=== PATIENT | female | born 1945 | race Caucasian/White ===

== ENCOUNTER 2016-12-16 08:56 | Emergency (ER) | payer MEDICARE, BC, MEDICAID ==
--- NOTE | 2016-12-16 10:14 | CT ---
CT HEAD WITHOUT CONTRAST: Date: 12/16/16 Multiple axial tomograms obtained through head without IV enhancement. HISTORY: Patient fell with injury to head. FINDINGS: Ventricles have normal size and position. There are mild chronic ischemic changes seen in the perive ntricular white matter and basal ganglia regions. There is no evidence of acute hemorrhage, mass, or infarct. There is a scalp hematoma over the right parietal bone. No evidence of skull fracture identified. There is mucosal edema in the right sphenoid sinus. Paranasal sinuses otherwise appear aerated as vi sualized on this study. IMPRESSION: 1. No evidence of acute intracranial injury. 2. Scalp hematoma over the right parietal bone. 3. Mucosal edema in the right sphenoid sinus. POS: [facility]
--- NOTE | 2016-12-16 10:16 | RAD ---
AP PELVIS: Date: 12/16/16 HISTORY: Injury. Patient fell at home. FINDINGS: There are three screws transfixing the left femoral neck. Bony pelvis appears intact. No evidence of acute fracture identified. IMPRESSION: No evidence of acute fracture. POS: [facility]
== END 2016-12-16 10:30 | disposition home or self-care (01) ==
LOC: ERS 08:56
DX: S00.03XA Contusion of scalp, initial encounter (principal); S70.02XA Contusion of left hip, initial encounter; M54.5 Low back pain; E03.9 Hypothyroidism, unspecified; W18.30XA Fall on same level, unspecified, initial encounter
CPT/HCPCS: 70450; 72170

== ENCOUNTER 2017-02-07 04:04 | Emergency (ER) | payer MEDICARE, BC, MEDICAID ==
[2017-02-07] MEDS ORDERED: Fentanyl 100 MCG/2 ML VIAL ONE (04:32)
[2017-02-07] MEDS ORDERED: Lorazepam 2 MG/ML VIAL ONE (04:32)
[2017-02-07 05:26] LABS: #Lymphocytes 1.3 thou/uL (1.20-3.40); #Monocytes 0.4 thou/uL (0.11-0.59); #Neutrophils 6.2 thou/uL (1.40-6.50); %Basophils 0.1 % (0.0-1.0); %Eosinophils 0.3 % (0.0-10.0); %Lymphocytes 16.5 % (21.0-51.0); %Monocytes 5.2 % (0.0-10.0); Hematocrit 42.3 % (36.0-47.0); Mean Platelet Volume 6.7 fL (7.4-10.4); Red Blood Cell (RBC) Count 4.47 mill/uL (4.20-5.40); White Blood Cell (WBC) Count 7.9 thou/uL (4.8-10.8)
[2017-02-07 05:32] LABS: Prothrombin Time 12.6 SEC (12.0-14.7)
[2017-02-07 05:33] LABS: PTT 26.3 SEC (22.9-36.1)
[2017-02-07 05:39] LABS: ALT (SGPT) 12 U/L (8-55); AST (SGOT) 20 U/L (5-34); Alkaline Phosphatase 63 U/L (40-150); Anion Gap 16 mmol/L (10-20); BUN (Urea Nitrogen) 6 mg/dL (9.8-20.1); Bilirubin, Total 0.8 mg/dL (0.2-1.2); CK (CPK) 64 U/L (29-168); Calc. Creatinine Clearance 0 mL/min (70-130); Carbon Dioxide 23 mmol/L (23-31); Chloride 96 mmol/L (98-107); Estimated GFR-MDRD 82; Globulin 3.3 g/dL (2.4-3.5); Lipase 42 U/L (8-78)
[2017-02-07 05:41] LABS: Troponin I Less than 0.010 ng/mL (< 0.028)
--- NOTE | 2017-02-07 07:42 | RAD ---
PORTABLE CHEST 1 VIEW: DATE: 02/07/17. TIME: 4:32 a.m. HISTORY: Chest pain, palpitations, back pain. FINDINGS: The heart size is borderline. The lungs are expanded without focal areas of consolidation, pneumotho rax, or pleural effusions. IMPRESSION: No radiographic evidence of acute cardiopulmonary process. POS: [facility]
--- NOTE | 2017-02-07 07:48 | CT ---
PRELIMINARY REPORT/[facility]/EMERGENCY AFTER HOURS PROCEDURE: EXAM: CT Angiography Chest With Intravenous Contrast CLINICAL HISTORY: 71 years old, female; Pain; Other: Back pain; Abdominal pain; Patient HX: F 71 presents to ed with pa lpations and back pain. Pt states that pain began last night around 1900 and became more intense thro ughout the night. Pt states that the back pain lead to the palpations. No HX of aortic problems. Took prednisone last night for pain but had no relief. TECHNIQUE: Axial computed tomographic angiography images of the chest with intravenous contrast using pulmonary embolism protocol. Coronal and sagittal reformatted images were created and reviewed. CONTRAST: 96 mL of ISO 370 administered intravenously. COMPARISON: No relevant prior studies available. FINDINGS: Pulmonary arteries: There is no evidence of peripheral filling defects within the pulmonary arterial circulation to suggest pulmonary embolism. Aorta: There is no evidence of aortic dissection, leak, rupture, or other complications. The aorta is normal. Lungs: There is subpleural atelectasis of the dependent portions of the lungs. No mass. Pleural space: Normal. No significant effusion. No pneumothorax. Heart: Normal. No cardiomegaly. No significant pericardial effusion. No evidence of RV dysfunction. Bones/joints: No acute fracture. No dislocation. Soft tissues: Normal. Lymph nodes: Normal. No enlarged lymph nodes. IMPRESSION: 1. There is no evidence of aortic dissection, leak, rupture, or other complications. 2. There is no CT evidence of acute pulmonary embolism. EXAM: CT Angiography Abdomen With Intravenous Contrast EXAM DATE/TIME: Exam ordered 02/07/2017 5:46 AM CLINICAL HISTORY: 71 years old, female; Pain; Other: Back pain; Abdominal pain; Patient HX: F 71 presents to ed with pa lpations and back pain. Pt states that pain began last night around 1900 and became more intense thro ughout the night. Pt states that the back pain lead to the palpations. No HX of aortic problems. Took prednisone last night for pain but had no relief. TECHNIQUE: Axial computed tomographic angiography images of the abdomen with intravenous contrast. Coronal and sagittal reformatted images were created and reviewed. CONTRAST: 96 mL of ISO 370 administered intravenously. COMPARISON: No relevant prior studies available. FINDINGS: Lower thorax: A small hiatal hernia is present. Aorta: There is no evidence of aortic aneurysm, dissection, leak, rupture, or other complications. The aorta demonstrates mild atherosclerotic calcification. 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 SMA patent. LANRE is patent. Renal arteries: No acute findings. No occlusion or significant stenosis. Liver: There are no focal liver lesions present. Gallbladder and bile ducts: There has been a cholecystectomy. No ductal dilation. Pancreas: The pancreas is normal. No ductal dilation. Spleen: The spleen is normal. Adrenals: The adrenal glands are normal. Kidneys and ureters: The right kidney is normal. There is a simple cyst in the left kidney. Nohydrone phrosis. Stomach and bowel: The duodenum is unremarkable. The visualized bowel is unremarkable. No obstruction . No mucosal thickening. Intraperitoneal space: Normal. No significant fluid collection. No free air. Bones/joints: No acute fracture. No dislocation. Soft tissues: Normal. No mass. Lymph nodes: Normal. No enlarged lymph nodes. IMPRESSION: 1. There is no evidence of aortic aneurysm, dissection, leak, rupture, or other complications. 2. 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 Thank you for allowing us to participate in the care of your patient. Dictated and Authenticated by: Ronak Malik MD 02/07/2017 6:27 AM Central Time ([place] & [place]) FINAL REPORT CTA CHEST WITH IV CONTRAST AND 3D POSTPROCESSING CTA ABDOMEN WITH IV CONTRAST AND 3D POSTPROCESSING: Date: 02/07/17 IMPRESSION: I agree with the preliminary report given by Dr. Ronak Malik of [facility]. POS: [facility]
[2017-02-07] MEDS ORDERED: ISOVUE-370 76%-LOCM 1 ML ONE (12:14)
== END 2017-02-07 06:43 | disposition home or self-care (01) ==
LOC: ERS 04:04
DX: M54.6 Pain in thoracic spine (principal); E03.9 Hypothyroidism, unspecified; Z79.899 Other long term (current) drug therapy
CPT/HCPCS: 71010; 71275; 80053; 82550; 82553; 83690; 83880; 84484; 85025; 85610; 85730; 93005; 96361; 96374; 96375; J2060; J3010

== ENCOUNTER 2017-04-25 07:27 | Outpatient (CLI) | payer MEDICARE, BC, MEDICAID ==
--- NOTE | 2017-04-25 08:39 | RAD ---
THORACIC SPINE 3 VIEWS: HISTORY: Back pain. FINDINGS: Thoracic vertebrae maintain normal height and alignment. No compression deformity. No lytic or mak tic process. Very mild degenerative spurring. Disk spaces are preserved, although there is some deg enerative disk change noted. IMPRESSION: Unremarkable thoracic spine. POS: [facility]
== END 2017-04-25 07:28 | disposition home or self-care (01) ==
LOC: SCSRAD 07:27
PROVIDERS: ATTEND Internal Medicine Rheumatology
DX: M81.8 Other osteoporosis without current pathological fracture (principal)
CPT/HCPCS: 72070

== ENCOUNTER 2017-04-27 09:43 | Inpatient (IN) | payer MEDICARE, BC, MEDICAID ==
[2017-04-27 10:29] LABS: #Lymphocytes 0.9 thou/uL (1.20-3.40); #Monocytes 1.1 thou/uL (0.11-0.59); #Neutrophils 14.7 thou/uL (1.40-6.50); %Basophils 0.3 % (0.0-1.0); %Eosinophils 0.2 % (0.0-10.0); %Lymphocytes 5.6 % (21.0-51.0); %Monocytes 6.3 % (0.0-10.0); %Neutrophils 87.7 % (42.0-75.0); Hemoglobin 13.1 g/dL (12.0-16.0); Mean Corpuscular HGB CONC 32.3 g/dL (32.0-36.0); Mean Corpuscular Hemoglobin 30.2 pg (27.0-31.0); Mean Corpuscular Volume 93.2 fl (81.0-99.0); Platelet Count 432 thou/uL (130-400); RBC Distribution Width 11.5 % (11.5-14.5); Red Blood Cell (RBC) Count 4.34 mill/uL (4.20-5.40); White Blood Cell (WBC) Count 16.8 thou/uL (4.8-10.8)
[2017-04-27] MEDS ORDERED: Acetaminophen 500 MG TAB ONE (10:39)
[2017-04-27 10:53] LABS: ALT (SGPT) 10 U/L (8-55); AST (SGOT) 17 U/L (5-34); Albumin 4.1 g/dL (3.4-4.8); Alkaline Phosphatase 73 U/L (40-150); Anion Gap 13 mmol/L (10-20); BUN (Urea Nitrogen) 7 mg/dL (9.8-20.1); Bilirubin, Total 0.9 mg/dL (0.2-1.2); CK (CPK) 65 U/L (29-168); Calc. Creatinine Clearance 0 mL/min (70-130); Calcium 9.3 mg/dL (7.8-10.44); Carbon Dioxide 21 mmol/L (23-31); Chloride 97 mmol/L (98-107); Estimated GFR-MDRD 86; Globulin 3.1 g/dL (2.4-3.5); Glucose 100 mg/dL (80-115); Potassium 4.4 mmol/L (3.5-5.1); Protein, Total 7.2 g/dL (6.0-8.3); Sodium 127 mmol/L (136-145)
[2017-04-27 10:55] LABS: CKMB 0.4 ng/mL (0-6.6); Troponin I Less than 0.010 ng/mL (< 0.028)
[2017-04-27] MEDS ORDERED: Ondansetron ODT 4 MG TAB PO PRN (11:20)
[2017-04-27] MEDS ORDERED: Ondansetron HCl/PF 4 MG/2 ML Vial IVP PRN (11:20)
[2017-04-27] MEDS ORDERED: Albuterol Sulfate 2.5 mg/3 ml Neb NEB PRN (11:23)
--- NOTE | 2017-04-27 11:25 | RAD ---
PORTABLE CHEST: Date: 04/27/17 PROVIDED CLINICAL HISTORY: Cough. FINDINGS: Comparison with 02/07/17. Cardiac and mediastinal silhouette is unchanged in appearance. Patchy parenchymal opacity is present at the left lung base, which may reflect pneumonia. Lungs appear otherwise clear. No evidence for ple ural fluid or pneumothorax. IMPRESSION: Patchy left basilar air space disease, correlate for pneumonia. Follow-up is recommended. POS: [facility]
--- NOTE | 2017-04-27 11:58 | CT ---
CT OF BRAIN PERFORMED WITHOUT CONTRAST ENHANCEMENT: Date: 04/27/17 HISTORY: Headache, cough, and congestion. FINDINGS: There is some generalized ventricular and sulcal prominence. There is some decreased attenuation to t he periventricular white matter consistent with chronic white matter change. There are no signs of in tracerebral hemorrhage or extra-axial fluid collections. The mastoid air cells are clear. There is et hmoid air cell mucosal disease. IMPRESSION: No acute intracranial abnormalities. POS: [facility]
[2017-04-27 12:14] LABS: Bilirubin Negative (Negative); Blood, Urine Negative (Negative); Clarity CLEAR (Clear); Glucose, Urine (Dipstick) Negative (Negative); Leukocyte Negative (Negative); Nitrite Negative (Negative); Protein, Urine (Dipstick) Negative (Neg-Trace); Specific Gravity, Urine 1.009 (1.002-1.036)
--- NOTE | 2017-04-27 13:26 | HP ---
PRIMARY CARE PHYSICIAN: Naren Malagon M.D. PRESENTING COMPLAINT: Cough. HISTORY OF PRESENT ILLNESS: Ms. Shaunna Jules is a 72-year-old female with a past medical history of gout, hypothyroidism, anemia of chronic disorder who presented to the emergency room with complaints of cough productive of yellowish sputum, nasal congestion, fever, and generalized malaise. She reports flu-like symptoms and the above named symptoms for the past 3-4 days. She went to see her primary care physician who felt symptoms are viral and was managed conservatively, but they persisted. She also had a left-sided headache located on her yazidi associated with some lacrimation, but no photophobia. No history of migraine headaches. Due to her persistent symptoms, she presented to the emergency room where labs revealed leukocytosis and a chest x-ray showed left basilar pneumonia. She was also found to be tachycardic and febrile with a temperature of 102.4 degree Fahrenheit. Other vital signs were within normal limits. PAST MEDICAL HISTORY: Gout, hypothyroidism, anemia of chronic disease. PAST SURGICAL HISTORY: Appendectomy, tonsillectomy and gastrectomy. FAMILY HISTORY: Reviewed and noncontributory. SOCIAL HISTORY: She does not smoke cigarettes, drink alcohol or use illicit drugs. ALLERGIES: ADHESIVES, ASPIRIN, ATROPINE SULFATE, DIPHENOXYLATE, SULFA DRUGS, LATEX, CODEINE. REVIEW OF SYSTEMS: Constitutional: Chills, fever. HEENT: P.r.n. headaches, rhinorrhea. Cardiovascular: Negative. Respiratory: Per HPI. Gastrointestinal: Negative. Genitourinary: Negative. Musculoskeletal: Negative. Skin: Negative. Neurologic: Headaches. Hematologic/Lymphatic: Negative. Allergy/Immunology: Negative. PHYSICAL EXAMINATION: VITAL SIGNS: Stable at the time of examination. GENERAL: Not in acute distress, lethargic, lying comfortably in bed. HEENT: Normocephalic, atraumatic. Not pale, anicteric. Moist mucous membranes. RESPIRATORY: Has rales in bilateral lung jauregui, but worse in the left lower lung jauregui. Otherwise, breath sounds were vesicular. CARDIOVASCULAR: S1, S2 only. No murmurs, rubs or gallops. Regular rate and rhythm. NEUROLOGIC: Alert and well oriented. No focal deficits. SKIN: Warm, dry, well-perfused. No rashes or lesions. MUSCULOSKELETAL: Moves all extremities spontaneously. No skeletal abnormalities. PSYCHIATRIC: Normal mood and affect. HOME MEDICATIONS: Reviewed and charted. LABORATORY DATA: As stated in HPI. IMAGING: Chest x-ray as stated in HPI. CT brain, no acute abnormalities. ASSESSMENT AND PLAN: 1. Sepsis secondary to left lower lobe pneumonia. She has been started on IV hydration. Blood cultures have been taken as well as sputum. IV levofloxacin has been instituted. We will monitor vital signs closely and follow up on culture results. 2. Pneumonia: as above. 3. Hypothyroidism. We will resume levothyroxine and obtain a TSH. 4. Gout, not in acute flare. We will continue home medications. 5. Headaches, Tylenol p.r.n. We will monitor vital signs and do neuro checks. CODE STATUS: FULL CODE. PROPHYLAXIS: Subcutaneous heparin. MTDD
[2017-04-27] MEDS ORDERED: Heparin 5,000 UNITS/ML VIAL SC SCH (15:00)
[2017-04-27] MEDS: Acetaminophen 325 MG TAB PO PRN ×2 (17:04→23:08)
[2017-04-27] MEDS: Sodium Chloride 0.9% 1,000 ML IV SCH ×2 (17:16→23:51)
[2017-04-27] MEDS ORDERED: Cepastat Lozenges 1 LOZ PO PRN (19:08)
[2017-04-27] MEDS ORDERED: Chloraseptic Spray 180 ml Bottle PO PRN (19:08)
[2017-04-27 19:55] VITALS: BMI 24.0
[2017-04-27] MEDS: Famotidine 20 MG TAB PO SCH (20:14)
[2017-04-27] MEDS: Docusate 100 MG CAP PO SCH (20:14)
[2017-04-27] MEDS: guaiFENesin ER 600 MG TAB PO SCH (20:14)
[2017-04-27] MEDS ORDERED: Cyclobenzaprine 10 MG TAB PO SCH (23:30)
[2017-04-28 05:10] LABS: #Lymphocytes 1.3 thou/uL (1.20-3.40); #Monocytes 1.3 thou/uL (0.11-0.59); #Neutrophils 16.1 thou/uL (1.40-6.50); %Basophils 0.1 % (0.0-1.0); %Eosinophils 0.1 % (0.0-10.0); %Lymphocytes 6.7 % (21.0-51.0); %Monocytes 6.7 % (0.0-10.0); %Neutrophils 86.4 % (42.0-75.0); Hemoglobin 11.3 g/dL (12.0-16.0); Mean Corpuscular Hemoglobin 31.1 pg (27.0-31.0); Mean Corpuscular Volume 94.2 fl (81.0-99.0); Mean Platelet Volume 6.4 fL (7.4-10.4); Platelet Count 397 thou/uL (130-400); RBC Distribution Width 11.4 % (11.5-14.5); Red Blood Cell (RBC) Count 3.61 mill/uL (4.20-5.40); White Blood Cell (WBC) Count 18.7 thou/uL (4.8-10.8)
[2017-04-28 05:12] LABS: Anion Gap 11 mmol/L (10-20); BUN (Urea Nitrogen) 5 mg/dL (9.8-20.1); Calc. Creatinine Clearance 83 mL/min (70-130); Calcium 8.5 mg/dL (7.8-10.44); Carbon Dioxide 21 mmol/L (23-31); Chloride 104 mmol/L (98-107); Estimated GFR-MDRD Greater than 90; Glucose 99 mg/dL (80-115); Potassium 3.8 mmol/L (3.5-5.1); Sodium 132 mmol/L (136-145)
[2017-04-28] MEDS: guaiFENesin ER 600 MG TAB PO SCH ×2 (09:40→20:06)
[2017-04-28] MEDS: Famotidine 20 MG TAB PO SCH ×2 (09:40→20:06)
[2017-04-28] MEDS: Docusate 100 MG CAP PO SCH ×2 (09:40→20:06)
[2017-04-28] MEDS: Cyclobenzaprine 10 MG TAB PO PRN ×2 (10:55→20:06)
--- NOTE | 2017-04-28 11:46 | PDOC.PN ---
- Subjective Encounter Start Date: 04/28/17 Encounter Start Time: 10:20 doing better. with productive cough - Objective Vital Signs & Weight: Vital Signs (12 hours) Temp Pulse Resp BP Pulse Ox 04/28/17 07:09 99.4 F 79 18 125/79 94 L 04/28/17 04:00 98.6 F 80 20 130/80 93 L 04/28/17 00:34 99.2 F 88 20 130/83 95 Weight Weight 139 lb 11.2 oz I&O: 04/27/17 04/28/17 04/29/17 05:59 06:59 06:59 Intake Total Balance Result Diagrams: 04/28/17 04:27 04/28/17 04:27 Phys Exam - Physical Examination Constitutional: NAD HEENT: PERRLA, moist MMs, sclera anicteric Neck: no nodes, no JVD, supple Respiratory: no wheezing, clear to auscultation bilateral Cardiovascular: RRR, no significant murmur Gastrointestinal: soft, non-tender, no distention Musculoskeletal: no edema, pulses present Neurological: non-focal, moves all 4 limbs Psychiatric: normal affect, A&O x 3 Dx/Plan (1) Sepsis Code(s): A41.9 - SEPSIS, UNSPECIFIED ORGANISM Status: Acute (2) Left lower lobe pneumonia Code(s): J18.1 - LOBAR PNEUMONIA, UNSPECIFIED ORGANISM Status: Acute - Plan cont current plan of care, plan discussed w/ family, continue antibiotics, respiratory therapy * . posssibly swtich to PO tmrw if cotninues to improve. monitor CBC in am as WBC trending up
[2017-04-28] MEDS ORDERED: Colchicine 0.6 MG TAB PO PRN (11:50)
[2017-04-28] MEDS ORDERED: OLOPATADINE HCL EA EYE PRN (11:50)
[2017-04-28] MEDS ORDERED: Cyanocobalamin 1000 MCG/ML VIAL IM SCH (12:00)
[2017-04-28] MEDS ORDERED: Donnatal Elixir 16.2 MG/5 ML UDCUP PO PRN (13:00)
[2017-04-28] MEDS: Sodium Chloride 0.9% 1,000 ML IV SCH (14:00)
[2017-04-28] MEDS: Mometasone/Formoterol 120 PUFF INHALER INH SCH (18:22)
[2017-04-28] MEDS ORDERED: Ketotifen Fumarate 0.025% Ophth Soln 5 ml Bottle EA EYE PRN (21:00)
[2017-04-29 05:34] LABS: Anion Gap 17 mmol/L (10-20); BUN (Urea Nitrogen) 6 mg/dL (9.8-20.1); Calc. Creatinine Clearance 83 mL/min (70-130); Calcium 8.7 mg/dL (7.8-10.44); Carbon Dioxide 15 mmol/L (23-31); Chloride 103 mmol/L (98-107); Estimated GFR-MDRD Greater than 90; Glucose 67 mg/dL (80-115); Potassium 4.5 mmol/L (3.5-5.1); Sodium 130 mmol/L (136-145)
[2017-04-29 05:35] LABS: Eosinophils 2 % (0-10); Hemoglobin 10.8 g/dL (12.0-16.0); Lymphocytes 13 % (21-51); MDiff Complete? YES; Mean Corpuscular HGB CONC 31.8 g/dL (32.0-36.0); Mean Corpuscular Hemoglobin 30.2 pg (27.0-31.0); Mean Platelet Volume 6.6 fL (7.4-10.4); Monocytes 6 % (0-10); Neutrophil 78 % (42-75); PLT Morphology Comment Appears Adequate; Platelet Count 371 thou/uL (130-400); RBC Distribution Width 11.5 % (11.5-14.5); Red Blood Cell (RBC) Count 3.57 mill/uL (4.20-5.40); White Blood Cell (WBC) Count 12.8 thou/uL (4.8-10.8)
[2017-04-29] MEDS: Mometasone/Formoterol 120 PUFF INHALER INH SCH (06:23)
[2017-04-29] MEDS: Famotidine 20 MG TAB PO SCH (08:40)
[2017-04-29] MEDS: guaiFENesin ER 600 MG TAB PO SCH (08:40)
[2017-04-29] MEDS: Docusate 100 MG CAP PO SCH (08:41)
[2017-04-29] MEDS ORDERED: Diazepam 5 MG TAB PO PRN (09:00)
[2017-04-29] MEDS ORDERED: Levothyroxine Sodium 50 MCG TAB PO SCH (09:00)
[2017-04-29] MEDS ORDERED: Nebivolol HCl 2.5 MG TAB PO SCH (09:00)
[2017-04-29 10:58] VITALS: BP 128/81; TEMP 97.5
--- NOTE | 2017-04-29 14:17 | DIS ---
DISCHARGE DIAGNOSES: 1. Sepsis secondary to left lower lobe pneumonia. 2. Left lower lobe pneumonia. HOSPITAL COURSE: While the patient was in hospital, the patient was started on IV antibiotics. Cult ures were drawn which were negative. The patient was afebrile with no leukocytosis. The patient had improved with the antibiotics that was started. The patient was satting well on room air. Due to the patient was significantly well, I was comfortable discharging the patient home. She was a lready taking IV Levaquin while in hospital so we have transitioned to oral so she can continue to ta ke it for another 5 more days. The patient was to follow with her primary care physician in 1 week. All questions answered prior to discharge. DISPOSITION: To home. DISCHARGE CONDITION: Much improved from when she initially came in. DISCHARGE ACTIVITY: As tolerated. DISCHARGE MEDICATIONS: Please see reconciled medication list. DISCHARGE DIET: Regular diet. FOLLOWUP APPOINTMENTS: With primary care physician in 1 week. Discharge planning was greater than 30 minutes.
--- NOTE | 2017-05-04 13:12 | EKG ---
Test Reason : Blood Pressure : / mmHG Vent. Rate : 102 BPM Atrial Rate : 102 BPM P-R Int : 106 ms QRS Dur : 070 ms QT Int : 312 ms P-R-T Axes : 039 048 015 degrees QTc Int : 406 ms Sinus tachycardia with short WA Nonspecific ST and T wave abnormality Abnormal ECG Confirmed by AKHIL QUINN ([id number]), manager editorial EULALIA ALMAGUER ([id number]) on 05/04/2017 1:11:52 PM Referred By: Confirmed By:AKHIL QUINN
== END 2017-04-29 11:34 | disposition home or self-care (01) | DRG 871 ==
LOC: ERS 09:43 → T4-A 12:01
PROVIDERS: ADMIT Internal Medicine; ATTEND Internal Medicine
DX: A41.9 Sepsis, unspecified organism (principal); J18.9 Pneumonia, unspecified organism; D63.8 Anemia in other chronic diseases classified elsewhere; E11.9 Type 2 diabetes mellitus without complications; M10.9 Gout, unspecified; E03.9 Hypothyroidism, unspecified
CPT/HCPCS: 36415; 70450; 71045; 72070; 80048; 80053; 81003; 82550; 82553; 83605; 83880; 84484; 85025; 87040; 87086; 87804; 93005; 94640; 96361; 96365; 96366; 99213; A4216; G0463; J1644; J1956; J3420

== ENCOUNTER 2017-05-21 07:25 | Emergency (ER) | payer MEDICARE, BC, MEDICAID ==
[2017-05-21] MEDS ORDERED: Ketorolac Tromethamine 30 MG/ML VIAL ONE (07:52)
== END 2017-05-21 08:10 | disposition home or self-care (01) ==
LOC: SCSER 07:25
DX: M62.830 Muscle spasm of back (principal); E11.9 Type 2 diabetes mellitus without complications; E03.9 Hypothyroidism, unspecified; W01.0XXA Fall on same level from slipping, tripping and stumbling without subsequent striking against object, initial encounter
CPT/HCPCS: 20552; 96372; J1885

== ENCOUNTER 2017-05-23 08:33 | Emergency (ER) | payer MEDICARE, BC, MEDICAID ==
[2017-05-23] MEDS ORDERED: Acetaminophen 500 MG TAB ONE (09:24)
[2017-05-23] MEDS ORDERED: Diazepam 5 MG TAB ONE (09:25)
[2017-05-23 09:52] LABS: #Eosinphils 0.4 thou/uL (0.0-0.7); #Lymphocytes 0.9 thou/uL (1.20-3.40); #Monocytes 0.4 thou/uL (0.11-0.59); #Neutrophils 3.5 thou/uL (1.40-6.50); %Basophils 0.4 % (0.0-1.0); %Monocytes 7.8 % (0.0-10.0); %Neutrophils 66.8 % (42.0-75.0); Hemoglobin 12.9 g/dL (12.0-16.0); Mean Corpuscular HGB CONC 32.8 g/dL (32.0-36.0); Mean Corpuscular Hemoglobin 30.7 pg (27.0-31.0); Mean Corpuscular Volume 93.7 fl (81.0-99.0); Mean Platelet Volume 6.7 fL (7.4-10.4); Platelet Count 368 thou/uL (130-400); Red Blood Cell (RBC) Count 4.21 mill/uL (4.20-5.40); White Blood Cell (WBC) Count 5.2 thou/uL (4.8-10.8)
[2017-05-23 10:02] LABS: Bilirubin Negative (Negative); Blood, Urine Negative (Negative); Clarity CLEAR (Clear); Glucose, Urine (Dipstick) Negative (Negative); Leukocyte Small (Negative); Nitrite Negative (Negative); Protein, Urine (Dipstick) Negative (Neg-Trace); Specific Gravity, Urine 1.014 (1.002-1.036); Urobilinogen 0.2 mg/dL (0.2-1.0)
[2017-05-23 10:03] LABS: Bacteria/HPF None Seen HPF (None Seen); Hyaline Casts/LPF 0-3 HYALINE CAST LPF (0-3 Hyaline); Pathc Cast-AUWi Flag 0.58 (0-2.49)
[2017-05-23 10:13] LABS: ALT (SGPT) 10 U/L (8-55); AST (SGOT) 18 U/L (5-34); Albumin 4.1 g/dL (3.4-4.8); Alkaline Phosphatase 62 U/L (40-150); Anion Gap 12 mmol/L (10-20); BUN (Urea Nitrogen) 5 mg/dL (9.8-20.1); Bilirubin, Total 0.5 mg/dL (0.2-1.2); Calc. Creatinine Clearance 0 mL/min (70-130); Calcium 9.4 mg/dL (7.8-10.44); Carbon Dioxide 25 mmol/L (23-31); Chloride 100 mmol/L (98-107); Estimated GFR-MDRD 83; Globulin 2.8 g/dL (2.4-3.5); Glucose 96 mg/dL (80-115); Potassium 4.7 mmol/L (3.5-5.1); Protein, Total 6.9 g/dL (6.0-8.3); Sodium 132 mmol/L (136-145)
--- NOTE | 2017-05-23 11:03 | RAD ---
3 VIEWS LUMBAR SPINE: Date 05/23/17 INDICATION: Low back pain for 1 week. COMPARISON: CT lumbar spine dated 01/28/15. FINDINGS: There are five lumbar-type vertebrae. Cholecystectomy clips are seen within the right upper quadrant. There is mild diffuse osteopenia. Multilevel mild disc degenerative disease is stable. Vertebral bod y heights are preserved. Mild facet osteoarthritic change is similar appearing. Vascular calcificatio n of aortic arch is stable. IMPRESSION: 1. Stable disc degenerative disease of the lumbar spine. 2. Diffuse osteopenia. POS: [facility]
== END 2017-05-23 11:33 | disposition home or self-care (01) ==
LOC: ERS 08:33
DX: N39.0 Urinary tract infection, site not specified (principal); M54.5 Low back pain; E11.9 Type 2 diabetes mellitus without complications; E03.9 Hypothyroidism, unspecified; Z79.52 Long term (current) use of systemic steroids; Z79.899 Other long term (current) drug therapy
CPT/HCPCS: 36415; 72100; 80053; 81003; 81015; 85025; 85652; 86140

== ENCOUNTER 2017-05-31 11:56 | Emergency (ER) | payer MEDICARE, BC, MEDICAID ==
--- NOTE | 2017-05-31 13:05 | CT ---
CT LUMBAR SPINE: HISTORY: A 72-year-old female with a history of fall, back pain. FINDINGS: Axial images are obtained with coronal and sagittal reconstructions. Comparison is made to a previou s CT from 01/28/15. CT images demonstrate an area of subtle height loss at the L2 vertebral level. There is an area of s lightly sclerotic linear density in the axial plane seen on the mid portion of the L2 vertebral body. This is compatible with approximately 10-5% L2 compression fracture. No significant evidence of re tropulsion seen. No evidence of spinal stenosis seen. There is a broad-based disk bulge and facet hypertrophy and ligamentum flavum hypertrophy resulting i n mild stenosis at L4-5. L5-S1: There is mild facet hypertrophy seen. IMPRESSION: A 10-15% height loss and acute compression fracture involving the L2 vertebra. This was not present on the previous CT from 2014 and appears to be acute. POS: [facility]
== END 2017-05-31 14:25 | disposition home or self-care (01) ==
LOC: ERS 11:56
DX: S32.020A Wedge compression fracture of second lumbar vertebra, initial encounter for closed fracture (principal); M51.26 Other intervertebral disc displacement, lumbar region; M51.27 Other intervertebral disc displacement, lumbosacral region; E11.9 Type 2 diabetes mellitus without complications; E03.9 Hypothyroidism, unspecified; Z79.52 Long term (current) use of systemic steroids; Z79.899 Other long term (current) drug therapy; W07.XXXA Fall from chair, initial encounter
CPT/HCPCS: 72131

== ENCOUNTER 2017-07-09 07:53 | Outpatient (CLI) | payer MEDICARE, BC, MEDICAID | END 2017-07-09 07:54 | disposition home or self-care (01) | LOC: BICULT 07:53 | PROVIDERS: ATTEND Internal Medicine Gastroenterology | DX: K74.60 Unspecified cirrhosis of liver (principal); B18.2 Chronic viral hepatitis C; K21.9 Gastro-esophageal reflux disease without esophagitis; Z90.49 Acquired absence of other specified parts of digestive tract | CPT/HCPCS: 76705 ==

== ENCOUNTER 2017-07-23 13:10 | Outpatient (CLI) | payer MEDICARE, BC, MEDICAID ==
--- NOTE | 2017-07-23 14:26 | RAD ---
LUMBAR SPINE TWO VIEWS: 07/23/2017 HISTORY: Multiple falls. Back pain. COMPARISON: 05/23/2017 FINDINGS: There are postoperative clips overlying the T11 and T12 regions. Clips in the right upper quadrant s uggest a prior cholecystectomy. There is atherosclerotic calcification of the abdominal aorta. There is a superior endplate/anterior wedge compression fracture at L2, as seen on a CT of the lumbar spine performed on 05/31/2017. On today's examination, the degree of anterior vertebral body height loss involving the L2 fracture is estimated at approximately 20%. This was estimated at the 10% to 15% range on the prior CT examination. No new fracture is seen. No retropulsion. No anterolisthesis or retrolisthesis. Multilevel mild lo wer lumbar spine facet hypertrophy. IMPRESSION: Anterior wedge compression fracture of the L2 vertebral body with at least 20% loss of vertebral body height anteriorly. The degree of vertebral body height loss has worsened slightly since the 018 CT exam. No new fracture identified. POS: [facility]
== END 2017-07-23 13:11 | disposition home or self-care (01) ==
LOC: TBSIIMAG 13:10
PROVIDERS: ATTEND Neurological Surgery
DX: S32.020A Wedge compression fracture of second lumbar vertebra, initial encounter for closed fracture (principal)
CPT/HCPCS: 72100

== ENCOUNTER 2017-08-02 08:43 | Outpatient (CLI) | payer MEDICARE, BC, MEDICAID | END 2017-08-02 08:44 | disposition home or self-care (01) | LOC: BICMAMMO 08:43 | PROVIDERS: ATTEND Internal Medicine Rheumatology | DX: M81.8 Other osteoporosis without current pathological fracture (principal) | CPT/HCPCS: 77080 ==

== ENCOUNTER 2017-10-01 12:17 | Outpatient (CLI) | payer MEDICARE, BC, MEDICAID | END 2017-10-01 12:18 | disposition home or self-care (01) | LOC: BICRAD 12:17 | PROVIDERS: ATTEND Internal Medicine Rheumatology | DX: M79.671 Pain in right foot (principal) ==

== ENCOUNTER 2017-12-12 10:41 | Emergency (ER) | payer MEDICARE, BC ==
[2017-12-12] MEDS ORDERED: Famotidine/PF 20 mg/2ml Vial ONE (10:50)
[2017-12-12] MEDS ORDERED: EPINEPHrine 1 MG/ML AMP ONE ×2 (10:50→12:53)
[2017-12-12] MEDS ORDERED: diphenhydrAMINE 25 MG CAP ONE ×2 (11:03→12:45)
[2017-12-12 11:16] LABS: #Basophils 0.1 thou/uL (0.0-0.2); #Eosinphils 0.3 thou/uL (0.0-0.7); #Lymphocytes 1.7 thou/uL (1.20-3.40); #Neutrophils 11.8 thou/uL (1.40-6.50); %Basophils 0.7 % (0.0-1.0); %Eosinophils 1.8 % (0.0-10.0); %Lymphocytes 11.3 % (21.0-51.0); %Monocytes 6.8 % (0.0-10.0); %Neutrophils 79.5 % (42.0-75.0); Hemoglobin 13.4 g/dL (12.0-16.0); Mean Corpuscular HGB CONC 33.1 g/dL (32.0-36.0); Mean Corpuscular Hemoglobin 30.5 pg (27.0-31.0); Mean Corpuscular Volume 92.1 fL (78.0-98.0); Mean Platelet Volume 6.6 fL (7.4-10.4); Platelet Count 412 thou/uL (130-400); Red Blood Cell (RBC) Count 4.39 mill/uL (4.20-5.40); White Blood Cell (WBC) Count 14.8 thou/uL (4.8-10.8)
[2017-12-12 11:33] LABS: ALT (SGPT) 12 U/L (8-55); AST (SGOT) 19 U/L (5-34); Albumin 4.6 g/dL (3.4-4.8); Alkaline Phosphatase 46 U/L (40-150); Anion Gap 13 mmol/L (10-20); BUN (Urea Nitrogen) 8 mg/dL (9.8-20.1); Bilirubin, Total 0.5 mg/dL (0.2-1.2); Calc. Creatinine Clearance 0 mL/min (70-130); Calcium 9.8 mg/dL (7.8-10.44); Carbon Dioxide 24 mmol/L (23-31); Chloride 96 mmol/L (98-107); Estimated GFR-MDRD 78; Globulin 2.8 g/dL (2.4-3.5); Glucose 89 mg/dL (80-115); Potassium 3.8 mmol/L (3.5-5.1); Protein, Total 7.4 g/dL (6.0-8.3); Sodium 129 mmol/L (136-145)
--- NOTE | 2017-12-12 14:44 | RAD ---
CHEST ONE VIEW: History: Chest pain. Dyspnea. Comparison: 04-27-17 FINDINGS: Cardiac silhouette is magnified by projection. Pulmonary vasculature is unremarkable. Mediastinum is midline. Lungs remain hyperinflated. No lobar consolidation or evidence of pneumothorax. Post-operati ve changes of the GE junction. gold prospector leads overlie the chest. IMPRESSION: No active cardiopulmonary abnormalities are demonstrated. Chronic type findings are stable. POS: [facility]
[2017-12-12 15:23] LABS: Bilirubin Negative (Negative); Blood, Urine Negative (Negative); Clarity CLEAR (Clear); Glucose, Urine (Dipstick) Negative (Negative); Leukocyte Moderate (Negative); Nitrite Negative (Negative); Protein, Urine (Dipstick) Negative (Neg-Trace); Specific Gravity, Urine 1.005 (1.002-1.036); Urobilinogen 0.2 mg/dL (0.2-1.0); pH, Urine 7.5 (5.0-9.0)
[2017-12-12 15:25] LABS: Bacteria/HPF None Seen HPF (None Seen); Hyaline Casts/LPF 0-3 HYALINE CAST LPF (0-3 Hyaline); RBC/HPF 0-3 HPF (0-3); WBC/HPF 21-50 HPF (0-3)
== END 2017-12-12 16:04 | disposition home or self-care (01) ==
LOC: ERS 10:41
DX: T78.2XXA Anaphylactic shock, unspecified, initial encounter (principal); N39.0 Urinary tract infection, site not specified; E11.649 Type 2 diabetes mellitus with hypoglycemia without coma; E03.9 Hypothyroidism, unspecified; Z79.899 Other long term (current) drug therapy
CPT/HCPCS: 71045; 80053; 81003; 81015; 85025; 93005; 96372; 96374; J0171; S0028

== ENCOUNTER 2018-03-07 13:14 | Emergency (ER) | payer MEDICARE, BC, MEDICAID ==
[2018-03-07 13:46] LABS: Bilirubin Small (Negative); Blood, Urine Trace (Negative); Clarity Cloudy (Clear); Glucose, Urine (Dipstick) 250 mg/dL (Negative); Leukocyte Large (Negative); Nitrite Positive (Negative); Protein, Urine (Dipstick) 30 mg/dL (Neg-Trace); pH, Urine 6.5 (5.0-9.0)
[2018-03-07 13:52] LABS: Bacteria/HPF 2+ HPF (None Seen)
[2018-03-07 13:53] LABS: Oval Fat Bodies/HPF Rare HPF (None Seen); Renal Epithelial 0-3 HPF (0-3)
== END 2018-03-07 14:15 | disposition home or self-care (01) ==
LOC: SCSER 13:14
DX: N30.01 Acute cystitis with hematuria (principal); D50.0 Iron deficiency anemia secondary to blood loss (chronic); E11.649 Type 2 diabetes mellitus with hypoglycemia without coma; E03.9 Hypothyroidism, unspecified; Z79.899 Other long term (current) drug therapy
CPT/HCPCS: 81003; 81015; 87077; 87086; 87186; 99283

== ENCOUNTER 2018-04-09 12:13 | Emergency (ER) | payer MEDICARE, BC, MEDICAID ==
[2018-04-09 12:53] LABS: #Basophils 0.1 thou/uL (0.0-0.2); #Eosinphils 0.6 thou/uL (0.0-0.7); #Lymphocytes 1.3 thou/uL (1.20-3.40); #Monocytes 0.7 thou/uL (0.11-0.59); #Neutrophils 5.1 thou/uL (1.40-6.50); %Eosinophils 7.6 % (0.0-10.0); %Lymphocytes 16.3 % (21.0-51.0); %Neutrophils 66.2 % (42.0-75.0); Hemoglobin 11.7 g/dL (12.0-16.0); Mean Corpuscular HGB CONC 33.4 g/dL (32.0-36.0); Mean Corpuscular Hemoglobin 31.8 pg (27.0-31.0); Mean Corpuscular Volume 95.4 fL (78.0-98.0); Mean Platelet Volume 5.6 fL (7.4-10.4); Platelet Count 351 thou/uL (130-400); RBC Distribution Width 12.4 % (11.5-14.5); Red Blood Cell (RBC) Count 3.66 mill/uL (4.20-5.40); White Blood Cell (WBC) Count 7.7 thou/uL (4.8-10.8)
[2018-04-09 13:00] LABS: PTT 25.1 SEC (22.9-36.1); Prothrombin Time 13.2 SEC (12.0-14.7)
[2018-04-09 13:10] LABS: ALT (SGPT) 16 U/L (8-55); AST (SGOT) 20 U/L (5-34); Albumin 4.1 g/dL (3.4-4.8); Alkaline Phosphatase 48 U/L (40-150); Anion Gap 13 mmol/L (10-20); BUN (Urea Nitrogen) 9 mg/dL (9.8-20.1); Bilirubin, Total 0.3 mg/dL (0.2-1.2); Calc. Creatinine Clearance 0 mL/min (70-130); Calcium 9.3 mg/dL (7.8-10.44); Carbon Dioxide 23 mmol/L (23-31); Chloride 97 mmol/L (98-107); Estimated GFR-MDRD 87; Globulin 2.4 g/dL (2.4-3.5); Glucose 102 mg/dL (80-115); Potassium 4.1 mmol/L (3.5-5.1); Protein, Total 6.5 g/dL (6.0-8.3); Sodium 129 mmol/L (136-145)
== END 2018-04-09 13:29 | disposition home or self-care (01) ==
LOC: SCSER 12:13
DX: L42 Pityriasis rosea (principal); I10 Essential (primary) hypertension; E87.1 Hypo-osmolality and hyponatremia; R23.3 Spontaneous ecchymoses; D50.9 Iron deficiency anemia, unspecified; M10.9 Gout, unspecified; E11.9 Type 2 diabetes mellitus without complications; E11.649 Type 2 diabetes mellitus with hypoglycemia without coma; E03.9 Hypothyroidism, unspecified; Z79.899 Other long term (current) drug therapy
CPT/HCPCS: 36415; 80053; 85025; 85610; 85730; 99283

== ENCOUNTER 2018-09-03 20:45 | Inpatient (IN) | payer MEDICARE, BC, MEDICAID ==
--- NOTE | 2018-09-03 21:38 | RAD ---
EXAM: Portable chest PROVIDED CLINICAL HISTORY: Altered mental status COMPARISON: 12/12/2017 FINDINGS: Cardiac and mediastinal silhouette is within normal limits. No focal consolidation, pleural fluid or pneumothorax evident. IMPRESSION: No evidence for an acute cardiopulmonary process.
[2018-09-03 21:40] LABS: #Eosinphils 0.9 thou/uL (0.0-0.7); #Lymphocytes 1.4 thou/uL (1.20-3.40); #Monocytes 1.2 thou/uL (0.11-0.59); #Neutrophils 8.6 thou/uL (1.40-6.50); %Basophils 0.2 % (0.0-1.0); %Eosinophils 7.5 % (0.0-10.0); %Lymphocytes 11.5 % (21.0-51.0); %Monocytes 9.9 % (0.0-10.0); %Neutrophils 70.8 % (42.0-75.0); Hemoglobin 11.3 g/dL (12.0-16.0); Mean Corpuscular HGB CONC 31.9 g/dL (32.0-36.0); Mean Corpuscular Hemoglobin 28.4 pg (27.0-31.0); Mean Platelet Volume 6.5 fL (7.4-10.4); Platelet Count 522 thou/uL (130-400); RBC Distribution Width 12.3 % (11.5-14.5); Red Blood Cell (RBC) Count 3.99 mill/uL (4.20-5.40); White Blood Cell (WBC) Count 12.2 thou/uL (4.8-10.8)
[2018-09-03 22:02] LABS: ALT (SGPT) 11 U/L (8-55); AST (SGOT) 19 U/L (5-34); Acetaminophen Less than 6.0 mcg/mL (10.0-30.0); Albumin 4.1 g/dL (3.4-4.8); Alcohol Less than 10 mg/dL (Less than 10); Alkaline Phosphatase 64 U/L (40-150); Anion Gap 11 mmol/L (10-20); BUN (Urea Nitrogen) 11 mg/dL (9.8-20.1); Bilirubin, Total 0.3 mg/dL (0.2-1.2); Calc. Creatinine Clearance 0 mL/min (70-130); Calcium 9.8 mg/dL (7.8-10.44); Carbon Dioxide 26 mmol/L (23-31); Chloride 97 mmol/L (98-107); Estimated GFR-MDRD 90; Globulin 2.8 g/dL (2.4-3.5); Glucose 99 mg/dL (83-110); Potassium 3.7 mmol/L (3.5-5.1); Protein, Total 6.9 g/dL (6.0-8.3); Salicylate Less than 8.0 mg/dL (15.0-30.0); Sodium 130 mmol/L (136-145)
--- NOTE | 2018-09-03 22:02 | CT ---
Exam: CT brain PROVIDED CLINICAL HISTORY: Altered mental status COMPARISON: 04/27/2017 FINDINGS: The ventricular system is normal in size and morphology. No evidence for intracranial hemorrhage or mass effect. The extracranial soft tissues and osseous structures demonstrate no evidence for an acute abnormality. Chronic microvascular ischemic changes involving the occipital white matter noted. IMPRESSION: No evidence for intracranial hemorrhage or mass effect.
[2018-09-03] MEDS ORDERED: diphenhydrAMINE 50 MG/ML VIAL ONE (22:25)
[2018-09-03] MEDS ORDERED: Aspirin Chewable 81 MG TAB ONE (22:33)
[2018-09-03 23:17] LABS: Bacteria/HPF None Seen HPF (None Seen); Bilirubin Negative (Negative); Blood, Urine Negative (Negative); Clarity Clear (Clear); Glucose, Urine (Dipstick) 50 mg/dL (Negative); Leukocyte 75 Leu/uL (Negative); Mucous/LPF 1+ LPF (<2+); Nitrite Negative (Negative); Protein, Urine (Dipstick) Negative (Neg-Trace); Urobilinogen Normal mg/dL (Less than 2)
[2018-09-04 00:09] VITALS: BMI 21.2
[2018-09-04] MEDS ORDERED: Bisacodyl 5 MG TAB PO PRN (10:56)
[2018-09-04] MEDS ORDERED: Meropenem 1 GM in Sodium Chloride 0.9% 100 ML IVPB SCH (11:00)
[2018-09-04] MEDS ORDERED: CRISABOROLE TD PRN (11:04)
[2018-09-04] MEDS ORDERED: RABEPRAZOLE SODIUM 20 MG PO PRN (11:04)
[2018-09-04] MEDS ORDERED: Colchicine 0.6 MG TAB PO PRN (11:04)
[2018-09-04] MEDS ORDERED: [UNRECOGNIZED DRUG - REMARK] PO PRN (11:04)
--- NOTE | 2018-09-04 12:12 | MRI ---
BRAIN MRI NONCONTRAST: INDICATION: Hyponatremia, encephalopathy. FINDINGS: There is mild global atrophy. No restricted diffusion. No evidence of mass effect or midline shift. Mild prominence of the ventricular system is present related to compensatory dilatation. Moderate chronic microvascular ischemic disease of the cerebral white matter is present. There is also pontin e gliosis. Minute susceptibility focus of the posterior right parietal lobe is seen. There is bilate ral mastoid fluid, right greater than left. Skull base flow voids are preserved. [place] intraocular lenses are absent. There is a focal T2 hyperintense, T1 hypointense subcutaneous mass of the left b uccal soft tissues which may relate to an inclusion cyst/sebaceous cyst. Correlate with physical exa m. IMPRESSION: 1. No acute territorial infarction or mass effect. 2. Moderate chronic microvascular ischemic disease. 3. Bilateral mastoid effusions. POS: [facility]
[2018-09-04] MEDS ORDERED: CRISABOROLE TOP PRN (12:25)
[2018-09-04] MEDS ORDERED: MEROPENEM 1 GM/50 ML 1 GM in Premix Bag 1 BAG IVPB SCH (14:00)
[2018-09-04] MEDS ORDERED: Cyanocobalamin 1000 MCG/ML VIAL IM SCH (14:00)
[2018-09-04] MEDS: diphenhydrAMINE 25 MG CAP PO PRN (14:44)
[2018-09-04] MEDS ORDERED: Melatonin 3 MG TAB PO PRN (16:04)
[2018-09-04] MEDS ORDERED: Nebivolol HCl 5 MG TAB PO SCH (16:30)
[2018-09-04 16:32] LABS: Amphetamine Not Detected (NotDetected); Barbiturates Screen Detected (NotDetected); Benzodiazepine Screen Not Detected (NotDetected); Cocaine Metabolite Screen Not Detected (NotDetected); Medtox Control Line Valid? VALID (VALID); Medtox Reader # READER 4; Methadone Not Detected (NotDetected); Methamphetamine Not Detected (NotDetected); Opiate Screen Not Detected (NotDetected); Oxycodone Screen Not Detected (NotDetected); Phencyclidine (PCP) Not Detected (NotDetected); THC/Cannabinoid Screen Not Detected (NotDetected); Tricyclic Screen Not Detected (NotDetected)
--- NOTE | 2018-09-04 16:54 | HP ---
PRIMARY CARE PROVIDER: Naren Malagon MD CHIEF COMPLAINT: Confusion. HISTORY OF PRESENT ILLNESS: Ms. Jules is a pleasant 73-year-old lady, who was seen at [facility] on September 04, 2018. Three days ago, she had headache over the crown of her head. The following day, she had a brief episode of confusion. Yesterday, she had longer episode of confusion. She was hallucinating. She reports that she saw a puppy when she does not have a puppy. She lives with her nephew. Her son called her at home and was told that she wanted to go home. The patient is able to provide most of the history at this time. Collateral history was obtained from her son, daughter, and grandson by the bedside, review of medical records and discussion with emergency room physician. She reports that she has dysuria. She reports feeling warm yesterday. She has no other complaints. REVIEW OF SYSTEMS: All other systems were reviewed and found to be negative. PAST MEDICAL HISTORY: Macular degeneration, iron deficiency anemia, gout, diabetes mellitus, hypothyroidism, hepatitis C, fibromyalgia, and lupus. PAST SURGICAL HISTORY: Appendectomy, cholecystectomy, left hip surgery, tonsillectomy, gastrectomy, bilateral cataract surgery, and sinus surgery. PSYCHIATRIC HISTORY: None. FAMILY HISTORY: Congestive heart failure in her mother and esophageal surgery in her father. CODE STATUS: I discussed her code status. She is full code. SOCIAL HISTORY: The patient denies tobacco use, alcohol use, or recreational drug use. ALLERGIES: ADHESIVE, ASPIRIN, ATROPINE, CODEINE, DIPHENOXYLATE, LATEX, MORPHINE, PENICILLIN, AND SULFA. CURRENT MEDICATIONS: 1. every 4 hours as needed. 2. Colchicine 0.6 mg 2 times a day as needed. 3. Eucrisa ointment 2 times a day as needed. 4. Vitamin B12 of 1000 mcg every month. 5. Synthroid 75 mcg daily. 6. Bystolic 5 mg daily. 7. Rabeprazole 20 mg daily as needed. PHYSICAL EXAMINATION: GENERAL: On examination, Ms. Jules is awake and alert, not in acute distress. VITAL SIGNS: Blood pressure is 176/85, pulse 80, respiratory rate 16, oxygen saturation 99% on room air, and she is afebrile. EYES: No scleral icterus. No conjunctival pallor. ENT: Moist mucosal membranes. No oropharyngeal erythema or exudates. NECK: Supple, nontender. Trachea is midline. RESPIRATORY: Accessory muscles of breathing are not active. Chest wall movements are symmetric bilaterally. Lungs are clear to auscultation without wheeze, rhonchi, or crepitations. CARDIOVASCULAR: S1 and S2 are heard, regular. Peripheral pulses palpable. No carotid bruit. No pericardial rub. ABDOMEN: Soft, nontender. Bowel sounds heard. No hepatomegaly. No splenomegaly. NEUROLOGIC: Cranial nerves II through XII intact. Deep tendon reflexes 2+. No focal motor or sensory deficits. Plantars downgoing bilaterally. MUSCULOSKELETAL: Power is 5/5 in all 4 extremities. SKIN: No rashes or subcutaneous nodules. LYMPHATIC: No cervical lymphadenopathy. PSYCHIATRIC: Normal mood. Normal affect. The patient is oriented to person, place, and time. DIAGNOSTIC DATA: Ms. Julse' labs and investigations were reviewed. I reviewed her electrocardiogram, which shows normal sinus rhythm, no ST changes to suggest an acute coronary syndrome. I also reviewed her chest x-ray, which does not show any pulmonary infiltrates. Noncontrast CT scan of the brain was unremarkable. She has leukocytosis with 12,200 white cells, of which 70.8% are neutrophils, normocytic anemia with hemoglobin 11.3, elevated platelet count of 522,000, decreased sodium of 130, otherwise unremarkable comprehensive metabolic profile, normal troponin-I and normal TSH. Urinalysis is positive for leukocyte esterase, rbc, and wbc. ASSESSMENT AND PLAN: Ms. Jules is a pleasant 73-year-old lady, who was seen at [facility] on September 04, 2018. Her problem list includes: 1. Acute metabolic encephalopathy: Ms. Jules is presenting with acute metabolic encephalopathy, etiology is unclear at this time. Differential diagnosis includes infectious causes, for example, urinary tract infection as well as other etiologies such as steroid use. She will be admitted to the hospital for further management. Neurology Service will be consulted for opinion and help with management. We will check MRI of the brain. 2. Urinary tract infection: Urinalysis is suggestive of urinary tract infection. We will trial meropenem empirically until urine cultures are back. The patient reports that her allergy to penicillin is in the form of rash and itching. 3. Hypothyroidism: We will continue Synthroid. TSH was normal. 4. Hypertension: Her blood pressure has been elevated. We will continue Bystolic and add amlodipine. 5. Gout: We will continue colchicine. Many thanks for allowing me to participate in your patient's care. Please feel free to contact me with any questions or concerns. LEVEL OF RISK: High. LEVEL OF COMPLEXITY: High. Job ID: [id number]
[2018-09-04] MEDS ORDERED: Amlodipine 5 MG TAB PO SCH (17:00)
--- NOTE | 2018-09-04 19:41 | CON ---
DATE OF CONSULTATION: CHIEF COMPLAINT: Encephalopathy. HISTORY OF PRESENT ILLNESS: The patient remembers that she did have some confusion and her grandkids brought her to the hospital. She gets tired and she feels dizzy, it is not severe. She has headache on top of the head. No nausea or vomiting. There is no history of any weakness described. She was hallucinating per ER and other medical records here, and the patient had some dysuria and yellowish-colored urine. PAST MEDICAL HISTORY: Positive for; 1. Macular degeneration. 2. Iron-deficiency anemia. 3. Gout. 4. Diabetes. 5. Hypothyroidism. 6. Hepatitis C. 7. Fibromyalgia. 8. Lupus. PAST SURGICAL HISTORY: 1. Appendectomy. 2. Cholecystectomy. 3. Left hip surgery. 4. Tonsillectomy. 5. Gastrectomy. 6. Bilateral cataract surgery. 7. Sinus surgery. FAMILY HISTORY: Positive for coronary artery disease, hypertension in her mother, who passed at 82. Father at 69 following gastrointestinal issues, and per chart, he had esophageal surgery. She has 1 brother with no significant medical history there. SOCIAL HISTORY: The patient does not smoke or drink alcohol. Does not use any drugs. LABORATORY DATA: Current lab workup; white count 12.2, hemoglobin 11.3, hematocrit 35.5, platelet count 522. Chemistry; sodium 130, potassium 3.7, chloride 97, BUN 11, creatinine 0.65. Urine tox was positive for barbiturates. MEDICATIONS: Home medications were also reviewed. REVIEW OF SYSTEMS: PULMONARY: Negative for cough or shortness of breath. GASTROINTESTINAL: Negative for nausea or vomiting. GENITOURINARY: Positive for dysuria and yellowish discoloration of her urine. CARDIAC: Negative for chest pain or palpitations. HEMATOLOGICAL: Negative for any bleeding diathesis or anemia. DERMATOLOGIC: Negative for any acute rash. ENDOCRINE: Negative for thyroid dysfunction or diabetes. PHYSICAL EXAMINATION: VITAL SIGNS: Temperature 98.4, pulse 76, respiratory rate 20, blood pressure 147/69. GENERAL APPEARANCE: Well-built, well-nourished, very pleasant lady, who is comfortable in her bed. CHEST: Clear vesicular breathing. CARDIOVASCULAR: S1 and S2 heard. No murmurs. ABDOMEN: Soft and nontender. No organomegaly noted. NEUROLOGICAL: Higher intellectual function. She is oriented to the month, but not to the year. She says it is 2019 or something like that and she could not recall the date. She is oriented to place and person. Cranial nerves, extraocular movements normal. Pupils 4 mm bilaterally, reactive to light and accommodation. Facial sensation is normal. No facial asymmetry noted. Tongue midline. No atrophy noted. Normal elevation of palate. Motor examination; bulk normal, tone normal. Strength 5/5 throughout in upper and lower extremities in iliopsoas, hamstrings, quadriceps, ankle dorsiflexion, plantar flexion, deltoid, biceps, triceps, wrist extension and flexion, finger extension and flexion bilaterally. Deep tendon reflexes were 1+ in both upper extremities, 2+ in both lower extremities. Sensory normal to touch bilaterally. Cerebellar; normal [id number], [id number]. Gait was not tested. IMPRESSION: The patient is a 73-year-old with sudden onset confusion and encephalopathy. She had dysuria and yellowish discoloration of her urine. MRI of the brain was performed and it was negative for any acute infarct, and all her lab workup is within normal limits except for elevated white count and sodium of 130. Her neurological examination today is normal except for orientation. She might have underlying mild dementia and developed encephalopathy with hallucinations secondary to urinary infection and hyponatremia. I do not think there are any additional factors since MRI of the brain is negative for stroke. RECOMMENDATIONS: Please continue present course of therapy with antibiotics and plan to treat the urinary infection and hyponatremia. I will follow along as needed. Please call if you have any further questions. Job ID: [id number]
[2018-09-04] MEDS: Acetaminophen 325 MG TAB PO PRN (21:38)
[2018-09-05 05:44] LABS: #Basophils 0.1 thou/uL (0.0-0.2); #Eosinphils 1.6 thou/uL (0.0-0.7); #Lymphocytes 1.3 thou/uL (1.20-3.40); #Monocytes 1.3 thou/uL (0.11-0.59); #Neutrophils 7.3 thou/uL (1.40-6.50); %Basophils 0.5 % (0.0-1.0); %Eosinophils 13.6 % (0.0-10.0); %Lymphocytes 11.5 % (21.0-51.0); %Monocytes 11.1 % (0.0-10.0); %Neutrophils 63.2 % (42.0-75.0); Hemoglobin 11.5 g/dL (12.0-16.0); Mean Corpuscular HGB CONC 31.5 g/dL (32.0-36.0); Mean Corpuscular Hemoglobin 27.5 pg (27.0-31.0); Mean Corpuscular Volume 87.4 fL (78.0-98.0); Mean Platelet Volume 6.5 fL (7.4-10.4); Platelet Count 569 thou/uL (130-400); RBC Distribution Width 12.3 % (11.5-14.5); Red Blood Cell (RBC) Count 4.16 mill/uL (4.20-5.40); White Blood Cell (WBC) Count 11.6 thou/uL (4.8-10.8)
[2018-09-05] MEDS: Levothyroxine Sodium 75 MCG TAB PO SCH (05:53)
[2018-09-05 06:23] LABS: Anion Gap 12 mmol/L (10-20); BUN (Urea Nitrogen) 11 mg/dL (9.8-20.1); Calc. Creatinine Clearance 69 mL/min (70-130); Calcium 9.3 mg/dL (7.8-10.44); Carbon Dioxide 25 mmol/L (23-31); Chloride 99 mmol/L (98-107); Estimated GFR-MDRD 88; Glucose 86 mg/dL (83-110); Potassium 3.7 mmol/L (3.5-5.1); Sodium 132 mmol/L (136-145)
[2018-09-05] MEDS: Nebivolol HCl 5 MG TAB PO SCH (08:11)
[2018-09-05] MEDS: Amlodipine 5 MG TAB PO SCH (08:16)
[2018-09-05] MEDS ORDERED: Levothyroxine Sodium 50 MCG TAB PO SCH (09:00)
[2018-09-05] MEDS ORDERED: Nebivolol HCl 5 MG TAB PO SCH (09:00)
[2018-09-05] MEDS ORDERED: Nebivolol HCl 2.5 MG TAB PO SCH (09:00)
[2018-09-05] MEDS: Ciprofloxacin 500 MG TAB PO SCH ×2 (10:59→20:11)
--- NOTE | 2018-09-05 16:27 | PDOC.PN ---
- Subjective Encounter Start Date: 09/05/18 Encounter Start Time: 07:40 Pt seen for followup re: UTI. Feels well, no complaints. - Objective Resuscitation Status - Order Detail: 09/04/18 16:02 Resuscitation Status Routine Resuscitation Status: FULL: Full Resuscitation Discussed with: patient Vital Signs & Weight: Vital Signs (12 hours) Temp Pulse Resp BP BP Pulse Ox 09/05/18 16:00 98.5 F 80 20 166/81 H 98 09/05/18 12:00 98.0 F 76 18 136/68 95 09/05/18 08:16 77 152/79 H 94 L 09/05/18 08:00 98.0 F 77 16 152/69 H 94 L Weight Weight 123 lb 12.8 oz I&O: 09/04/18 09/05/18 09/06/18 06:59 06:59 06:59 Intake Total 1590 Output Total 500 1950 Balance -500 -360 Result Diagrams: 09/05/18 05:14 09/05/18 05:14 Phys Exam - Physical Examination Constitutional: NAD HEENT: moist MMs Neck: supple Respiratory: clear to auscultation bilateral Cardiovascular: RRR Gastrointestinal: soft Neurological: moves all 4 limbs Psychiatric: normal affect Deviation from normal: Not oriented to year Dx/Plan (1) UTI (urinary tract infection) Status: Acute Comment: continue ciprofloxacin, await urine culture (2) Hyponatremia Code(s): E87.1 - HYPO-OSMOLALITY AND HYPONATREMIA Status: Acute Comment: sodium improved to 132 (3) HTN (hypertension) Code(s): I10 - ESSENTIAL (PRIMARY) HYPERTENSION Status: Chronic Comment: Improved control, amlodipine was added yesterday (4) Acute metabolic encephalopathy Code(s): G93.41 - METABOLIC ENCEPHALOPATHY Status: Resolved Comment: Likely due to UTI +/- hyponatremia - Plan * . Review of Systems - Review of Systems Cardiovascular: negative: chest pain, palpitations, orthopnea, paroxysmal nocturnal dyspnea, edema, light headedness Gastrointestinal: negative: Nausea, Vomiting, Abdominal Pain, Diarrhea, Constipation, Melena, Hematochezia - Medications/Allergies Allergies/Adverse Reactions: Allergies Allergy/AdvReac Type Severity Reaction Status Date / Time adhesive Allergy itch, burn Verified 09/04/18 00:34 aspirin Allergy hemorrhage Verified 09/04/18 00:34 atropine sulfate Allergy hives, GI Verified 09/04/18 00:34 [From Lomotil] cramping corn Allergy itch Verified 07/23/14 08:18 diphenoxylate HCl Allergy Verified 09/04/18 00:34 [From Lomotil] latex Allergy red, Verified 07/23/14 08:18 itching, swelling Penicillins Allergy itching, Verified 09/04/18 00:34 break out Sulfa (Sulfonamide Allergy GI upset Verified 09/04/18 00:34 Antibiotics) codeine AdvReac Emesis Verified 09/04/18 00:34 nuts Allergy redness, Uncoded 07/23/14 08:18 itching raw fruit Allergy throat Uncoded 07/23/14 08:19 itches, swells seeds Allergy redness, Uncoded 07/23/14 08:19 itching Medications: Current Medications Acetaminophen (Tylenol) 650 mg PO Q4H PRN PRN Reason: Headache/Fever/Mild Pain (1-3) Last Admin: 09/04/18 21:38 Dose: 650 mg Amlodipine Besylate (Norvasc) 5 mg PO DAILY [facility] Last Admin: 09/05/18 08:16 Dose: 5 mg Bisacodyl (Dulcolax) 10 mg PO DAILYPRN PRN PRN Reason: Constipation Ciprofloxacin (Cipro) 500 mg PO Q12H [facility] Last Admin: 09/05/18 10:59 Dose: 500 mg Colchicine (Colchicine) 0.6 mg PO BID PRN PRN Reason: Pain Cyanocobalamin (Vitamin B-12) 1,000 mcg IM Q28D [facility] Last Admin: 09/04/18 13:55 Dose: 1,000 mcg Diphenhydramine HCl (Benadryl) 25 mg PO Q4H PRN PRN Reason: Itching & Insomnia Last Admin: 09/04/18 14:44 Dose: 25 mg Levothyroxine Sodium (Synthroid) 75 mcg PO 0600 [facility] Last Admin: 09/05/18 05:53 Dose: 75 mcg Melatonin (Melatonin) 3 mg PO HS PRN PRN Reason: Insomnia Nebivolol (Bystolic) 5 mg PO DAILY [facility] Last Admin: 09/05/18 08:11 Dose: 5 mg Pantoprazole Sodium (Protonix) 40 mg PO DAILYPRN PRN PRN Reason: GI UPSET Last Admin: 09/05/18 08:09 Dose: 40 mg Crisaborole [Eucrisa (] 2% Ointment) 0 each TOP BIDPRN PRN PRN Reason: RASH/TOPICAL IRRITATION Sodium Chloride (Flush - Normal Saline) 10 ml IVF Q12HR [facility] Last Admin: 09/05/18 10:02 Dose: Not Given Sodium Chloride (Flush - Normal Saline) 10 ml IVF PRN PRN PRN Reason: Saline Flush
[2018-09-05] MEDS: Acetaminophen 325 MG TAB PO PRN (17:03)
[2018-09-05] MEDS: diphenhydrAMINE 25 MG CAP PO PRN (20:51)
[2018-09-06 04:48] LABS: #Eosinphils 1.6 thou/uL (0.0-0.7); #Lymphocytes 1.3 thou/uL (1.20-3.40); #Neutrophils 6.1 thou/uL (1.40-6.50); %Basophils 0.4 % (0.0-1.0); %Eosinophils 15.9 % (0.0-10.0); %Lymphocytes 12.9 % (21.0-51.0); %Neutrophils 60.8 % (42.0-75.0); Hemoglobin 11.2 g/dL (12.0-16.0); Mean Corpuscular HGB CONC 32.4 g/dL (32.0-36.0); Mean Corpuscular Hemoglobin 28.6 pg (27.0-31.0); Mean Corpuscular Volume 88.1 fL (78.0-98.0); Mean Platelet Volume 6.5 fL (7.4-10.4); Platelet Count 551 thou/uL (130-400); RBC Distribution Width 12.2 % (11.5-14.5); Red Blood Cell (RBC) Count 3.92 mill/uL (4.20-5.40)
[2018-09-06 04:57] LABS: Anion Gap 13 mmol/L (10-20); BUN (Urea Nitrogen) 11 mg/dL (9.8-20.1); Calc. Creatinine Clearance 74 mL/min (70-130); Calcium 9.4 mg/dL (7.8-10.44); Carbon Dioxide 23 mmol/L (23-31); Chloride 99 mmol/L (98-107); Estimated GFR-MDRD Greater than 90; Glucose 98 mg/dL (83-110); Potassium 3.6 mmol/L (3.5-5.1); Sodium 131 mmol/L (136-145)
[2018-09-06] MEDS: Levothyroxine Sodium 75 MCG TAB PO SCH (05:41)
[2018-09-06] MEDS: Nebivolol HCl 5 MG TAB PO SCH (08:36)
[2018-09-06] MEDS: Amlodipine 5 MG TAB PO SCH (08:36)
[2018-09-06 11:41] VITALS: BP 155/79; TEMP 97.5
[2018-09-06] MEDS: Ciprofloxacin 500 MG TAB PO SCH (11:51)
--- NOTE | 2018-09-06 14:31 | DIS ---
DATE OF ADMISSION: 09/03/2018 DATE OF DISCHARGE: 09/06/2018 PRIMARY CARE PROVIDER: Naren Malagon MD. DISCHARGE DIAGNOSES: 1. Acute metabolic encephalopathy. 2. Urinary tract infection. 3. Hyponatremia. 4. Hypertension. CONDITION OF PATIENT ON THE DAY OF DISCHARGE: Stable. I assessed Ms. Jules on the day of discharge. She denies any chest pain or shortness of breath. Vital signs are stable. S1 and S2 are heard, regular. Lungs are clear to auscultation bilaterally. DISCHARGE MEDICATIONS: Benadryl 25 mg every 4 hours as needed, colchicine 0.6 mg 2 times a day, Eucrisa topically as needed, vitamin B12 1000 mcg intramuscularly every month, Synthroid 75 mcg daily, Nebivolol 5 mg daily, rabeprazole 20 mg daily, amlodipine 5 mg daily, ciprofloxacin 500 mg 2 times a day for 3 more days, and melatonin 3 mg at bedtime as needed. HOSPITAL COURSE: Ms. Jules is a pleasant 73-year-old lady, who was admitted to [facility] on September 03, 2018, for acute metabolic encephalopathy. She was seen by Neurology, Dr. Hyman. It was felt that her altered mental status was secondary to hyponatremia and urinary tract infection. MRI of the brain was negative for stroke. Final urine culture was positive for mixed skin johnathan. She has been advised to complete antibiotic course for urinary tract infection. She had a normal TSH during this hospitalization. On the day of discharge, she has sodium 131, potassium 3.6, creatinine 0.62, white count 10,000, hemoglobin 11.2, and platelet count 551,000. Many thanks for allowing me to participate in your patient's care. Please feel free to contact me with any questions or concerns. DISCHARGE DESTINATION: Home. FOLLOW UP: With primary care provider in 3-5 days. TIME SPENT: Total amount of time spent coordinating this discharge: 33 minutes. Job ID: [id number] MTDD
--- NOTE | 2018-09-06 14:52 | EKG ---
Test Reason : Blood Pressure : / mmHG Vent. Rate : 084 BPM Atrial Rate : 084 BPM P-R Int : 112 ms QRS Dur : 078 ms QT Int : 362 ms P-R-T Axes : 067 028 029 degrees QTc Int : 427 ms Normal sinus rhythm Normal ECG Confirmed by GUILLERMO SHRESTHA M.D. ([id number]), editorial writer BEV HOGUE ([id number] on 09/06/2018 2:52:03 PM Referred By: Confirmed By:GUILLERMO SHRESTHA M.D.
== END 2018-09-06 13:50 | disposition home or self-care (01) | DRG 640 ==
LOC: ERS 20:45 → 2SE 22:26
PROVIDERS: ADMIT Family Medicine; ATTEND Family Medicine
DX: E87.1 Hypo-osmolality and hyponatremia (principal); G93.41 Metabolic encephalopathy; N39.0 Urinary tract infection, site not specified; R44.3 Hallucinations, unspecified; H35.30 Unspecified macular degeneration; M10.9 Gout, unspecified; E11.9 Type 2 diabetes mellitus without complications; E03.9 Hypothyroidism, unspecified; B18.2 Chronic viral hepatitis C; M79.7 Fibromyalgia; I10 Essential (primary) hypertension; M32.9 Systemic lupus erythematosus, unspecified; Z90.49 Acquired absence of other specified parts of digestive tract; Z88.8 Allergy status to other drugs, medicaments and biological substances; Z88.5 Allergy status to narcotic agent; Z88.2 Allergy status to sulfonamides; Z88.0 Allergy status to penicillin; Z91.040 Latex allergy status; Z79.51 Long term (current) use of inhaled steroids; Z79.899 Other long term (current) drug therapy
CPT/HCPCS: 36415; 70450; 70551; 71045; 80048; 80053; 80306; 80307; 81003; 81015; 84443; 84484; 85025; 87086; 93005; 96374; J0744; J1200; J2185; J3420; Q0163

== ENCOUNTER 2023-12-23 09:36 | Emergency (ER) | payer MEDICARE, OTHER ==
[2023-12-23 10:18] LABS: #Basophils 0.07 10x3/uL (0.0-0.2); %Basophils 0.8 % (0.0-1.0); %Eosinophils 4.2 % (0.0-10.0); %Lymphocytes 10.5 % (21.0-51.0); %Neutrophils 78.1 % (42.0-75.0); Hematocrit 37.9 % (36.0-47.0); Hemoglobin 12.3 g/dL (12.0-16.0); Mean Corpuscular HGB CONC 32.5 g/dL (32.0-36.0); Mean Corpuscular Hemoglobin 30.6 pg (27.0-31.0); Mean Corpuscular Volume 94.3 fL (78.0-98.0); Mean Platelet Volume 9.9 fL (7.4-10.4); Platelet Count 286 10x3/uL (130-400); RBC Distribution Width 13.4 % (11.5-14.5); Red Blood Cell (RBC) Count 4.02 mill/uL (4.20-5.40)
[2023-12-23 10:30] LABS: Prothrombin Time 13.3 sec (12.0-14.7)
[2023-12-23 10:31] LABS: PTT 25.3 sec (22.9-36.1)
[2023-12-23 10:43] LABS: ALT (SGPT) 49 U/L (8-55); AST (SGOT) 43 U/L (5-34); Albumin 3.5 g/dL (3.4-4.8); Anion Gap 12 mmol/L (10-20); BUN (Urea Nitrogen) 20 mg/dL (9.8-20.1); Bilirubin, Total 0.4 mg/dL (0.2-1.2); Calc. Creatinine Clearance 0 mL/min (70-130); Calcium 8.8 mg/dL (7.8-10.44); Carbon Dioxide 22 mmol/L (23-31); Chloride 110 mmol/L (98-107); Estimated GFR 82; Globulin 2.8 g/dL (2.4-3.5); Glucose 101 mg/dL (83-110); Potassium 3.2 mmol/L (3.5-5.1); Protein, Total 6.3 g/dL (5.8-8.1); Sodium 141 mmol/L (136-145)
[2023-12-23 10:46] LABS: Troponin I Less than 0.010 ng/mL (< 0.028)
[2023-12-23] MEDS ORDERED: Acetaminophen 325 MG TAB ONE (11:18)
[2023-12-23] MEDS ORDERED: Lidocaine 1% PF 5 ML VIAL ONE (11:19)
[2023-12-23 11:22] LABS: Alkaline Phosphatase 47 U/L (40-110)
[2023-12-23] MEDS ORDERED: Boostrix 0.5 ML (Tdap) VIAL (>/=7 yrs of age) ONE (14:29)
== END 2023-12-23 15:10 ==
LOC: ERS 09:36
DX: S01.511A Laceration without foreign body of lip, initial encounter (principal); S02.5XXA Fracture of tooth (traumatic), initial encounter for closed fracture; E11.649 Type 2 diabetes mellitus with hypoglycemia without coma; J44.9 Chronic obstructive pulmonary disease, unspecified; W17.89XA Other fall from one level to another, initial encounter; Z23 Encounter for immunization
CPT/HCPCS: 12052; 36415; 70450; 71045; 72125; 72170; 80053; 84484; 85025; 85610; 85730; 90471; 90715; 93005; G0390